=== PATIENT | female | born 1975 | race Caucasian/White ===

== ENCOUNTER → 2021-09-08 | Outpatient (CLI) | payer BC | LOC: MRI 11:03 | PROVIDERS: ATTEND Specialist | DX: M23.91 Unspecified internal derangement of right knee (principal) | CPT/HCPCS: 81025 ==

== ENCOUNTER → 2024-03-23 | Day surgery (SDC) | payer BC ==
[~2024-03-23] MED LIST: LIDOCAINE HCL 2% LOCAL INJ 5 ML SDV VIAL INJ ONE; MIDAZOLAM HCL 2 MG/2 ML VIAL ONE; PROPOFOL IV EMULSION 10 MG/ML 20 ML VIAL ONE
[2024-03-23] MEDS: LACTATED RINGER'S 1,000 ML ONE (13:48)
[2024-03-23 16:50] VITALS: BP 100/65; PULSE 52; RESP 16; O2SAT 100
== END | disposition home or self-care (01) ==
LOC: OR 13:00
PROVIDERS: ATTEND Internal Medicine Gastroenterology
DX: Z12.11 Encounter for screening for malignant neoplasm of colon (principal); K64.8 Other hemorrhoids
CPT/HCPCS: 45378; J2001; J2250; J2704; J7121